=== PATIENT | female | born 1955 | race Caucasian/White ===

== ENCOUNTER 2023-12-25 13:45 | Outpatient (RCR) | payer MEDICARE, OTHER, SELFPAY ==
[2023-11-14 12:12] VITALS: PULSE 77
== END 2023-12-28 08:12 | disposition home or self-care (01) ==
LOC: ANHCPREHAB 13:45
PROVIDERS: Visit Provider Internal Medicine Cardiovascular Disease
DX: Z95.2 Presence of prosthetic heart valve (principal)
CPT/HCPCS: 93798

== ENCOUNTER 2024-04-08 13:45 | Outpatient (RCR) | payer MEDICARE, OTHER, SELFPAY | END 2024-04-19 07:39 | disposition home or self-care (01) | LOC: ANHCPREHAB 13:45 | DX: Z95.2 Presence of prosthetic heart valve (principal) | CPT/HCPCS: 93798 ==

== ENCOUNTER 2024-06-03 14:04 | Outpatient (CLI) | payer MEDICARE, OTHER, SELFPAY ==
--- NOTE | ~2024-06-03 | DEXA_ITS ---
Bone Density Report Name: GARCÍA MARTINEZ Age: 69 Sex: Female Ethnicity: White Date of : 1955 Indication: postmenopausal; screening for osteoporosis; end stage renal disease; Referring Provider: UNKNOWN, UNKNOWN Study: Bone densitometry was performed. Exam Date: June 03, 2024 Accession number: [id number] Bone Density: Region BMD T-score Z-score Classification AP Spine(L1-L4) 0.791 -2.3 -0.2 Osteopenia Femoral Neck (Left) 0.603 -2.2 -0.4 Osteopenia Total Hip (Left) 0.754 -1.5 0.0 Osteopenia Femoral Neck (Right) 0.591 -2.3 -0.5 Osteopenia Total Hip (Right) 0.784 -1.3 0.2 Osteopenia Femoral Neck Mean 0.597 -2.3 -0.5 Osteopenia Total Hip Mean 0.769 -1.4 0.1 Osteopenia World Health Organization criteria for BMD impression classify patients as: Normal (T-score at or above -1.0), Osteopenia (T-score between -1.0 and -2.5), or Osteoporosis (T-score at or below -2.5). 10-year Fracture Risk(1): Major Osteoporotic Fracture 12% Hip Fracture 2.8% Reported Risk Factors: [place] (), Neck BMD=0.591, BMI=20.7 (1) FRAX(R) Version 3.08. Fracture probability calculated for an untreated patient. Fracture probability may be lower if the patient has received treatment. Clinical Information Provided by Patient: Has used the following medications: Vitamin D, Calcium, multi Has the following medical conditions: End stage renal disease Patient maximum height was 62.2 Menopause Age: 49 No regular weight bearing exercise Does not regularly consume dairy products Drinks caffeinated beverages Onset of menses at age 12 Number of children 0 Impression: The patient has low bone mass, based on the Total Spine T-score. Discussion: BONE DENSITY IS LOW AT ONE OR MORE SKELETAL SITES. This patient's lowest T-score is low at one or more skeletal sites. It meets the World Health Organization's (WHO) criteria for ?low bone mass? (T-score between -1.0 and -2.5). The patient's 10-year risk of fracture as calculated by FRAX is less than the threshold where pharmacological therapy is recommended by the National Osteoporosis Foundation (NOF). However, all treatment decisions require clinical judgment and consideration of individual patient factors, including patient preferences, comorbidities, previous drug use, risk factors not captured in the FRAX model (e.g., frailty, falls, vitamin D deficiency, increased bone turnover, interval significant decline in bone density) and possible under or overestimation of fracture risk by FRAX. The patient should follow a healthful lifestyle (good nutrition with adequate calcium and vitamin D, and appropriate weight-bearing exercise). Follow-Up: Consider repeating this study in 2 to 3 years to reassess this patient's status, or sooner if there is some new clinical indication. Reported by: TROY on 06/03/2024 2:29:00 PM. Reviewed, dictated and finalized at location A.
== END 2024-06-03 14:05 | disposition home or self-care (01) ==
LOC: CHSIMG 14:09
DX: Z78.0 Asymptomatic menopausal state (principal); M85.89 Other specified disorders of bone density and structure, multiple sites
CPT/HCPCS: 77080